=== PATIENT | female | born 1955 ===

== ENCOUNTER 2022-05-24 11:39 | Outpatient (REF) | payer OTHER, SELFPAY ==
--- NOTE | ~2022-05-24 | XR_ITS ---
EXAMINATION: XR RIGHT HAND, WRIST CLINICAL INFORMATION: Pain. COMPARISON: Right wrist from [facility] 05/02/2022. TECHNIQUE: 4 views. FINDINGS: There is normal intercarpal, radiocarpal and carpometacarpal alignment without any visible fracture, bony erosive changes or subluxation. However, on the lateral view there is a small bone fragment seen along the volar aspect of the distal radius, question chip fracture. The scaphoid bone is unremarkable. XR/XR wrist RT w scaphoid IMPRESSION: Small chip fracture suspected anterior to the volar radial bone. No soft tissue swelling seen. This is not visualized on the old x-rays. The scaphoid bone is unremarkable.
== END 2022-05-24 11:40 | disposition home or self-care (01) ==
LOC: HO.HOSX 11:39
PROVIDERS: Visit Provider Physician Assistant
DX: S52.501A Unspecified fracture of the lower end of right radius, initial encounter for closed fracture (principal)
CPT/HCPCS: 73110; 99202

== ENCOUNTER 2022-06-22 08:14 | Outpatient (REF) | payer OTHER, SELFPAY ==
--- NOTE | ~2022-06-22 | XR_ITS ---
EXAMINATION: XR WRIST, RIGHT CLINICAL INFORMATION: Pain COMPARISON: Right wrist radiograph from 05/24/2022 TECHNIQUE: PA, lateral, and oblique views of the right wrist. FINDINGS: Previously identified suspected chip fracture along the volar distal radius is less conspicuous on current imaging. No acute visible fracture or dislocation. Joint spaces and alignment are maintained. Soft tissues are unremarkable. XR/XR wrist RT min 3V IMPRESSION: 1. Previously identified suspected chip fracture along the volar distal radius is less conspicuous on current imaging. If clinically warranted this can be further evaluated with cross-sectional imaging. 2. No acute visible fracture or dislocation.
== END 2022-06-22 08:15 | disposition home or self-care (01) ==
LOC: HO.HOSX 08:14
PROVIDERS: Visit Provider Physician Assistant
DX: S52.501A Unspecified fracture of the lower end of right radius, initial encounter for closed fracture (principal)
CPT/HCPCS: 73110; 99212